=== PATIENT | female | born 1945 | race Hispanic/Latino ===

== ENCOUNTER 2016-11-19 21:42 | Emergency (ER) | payer OTHER, MEDICARE ==
[2016-11-19 21:47] VITALS: BP 166/86
[2016-11-19] MEDS ORDERED: TESSALON PERLE100 M1 PO (22:12)
[2016-11-19] MEDS ORDERED: AMOXICILLIN250 M3 PO (22:12)
[2016-11-19] MEDS ORDERED: PROAIR HFA8.5 GM INH (22:12)
--- NOTE | 2016-11-19 22:16 | ED THROAT/DENTAL COMPLAINT ---
History of Present Illness General Chief Complaint: Sore Throat, Dental Pain Stated Complaint: SORE THROAT, FEVER, CONGESTION PER PT Source: patient, family Exam Limitations: no limitations Vital Signs & Intake/Output Vital Signs & Intake/Output Vital Signs Date Time Temp Pulse Resp B/P Pulse O2 O2 Flow FiO2 Ox Delivery Rate 11/197 98.0 71 18 166/86 98 Room Air Allergies Coded Allergies: No Known Allergies (11/19/16) Triage Note: TRIAGE; PT TO ED C/O SORE THROAT, FEVER OF 101, CONGESTION, AND COUGH SINCE WEDNESDAY. PTS TEMP 98.0 IN TRIAGE, TOOK TYLENOL AT 8PM TONIGHT. PT STATES PAIN WITH SWALLOWING, ALSO HAVING PAIN IN CHEST WHENEVER SHE COUGHS, AND GOES AWAY WHEN NOT COUGHING, ALSO FEELS LIKE SHE HAS ASTHMA, STATES SHE HAD IT A KID, BUT HER BREATHING FEELS LIKE IT NOW WELL. RA SAT 98%. Triage Nurses Notes Reviewed? yes HPI: Patient presents with a three-day history of fevers chills sore throat and a nonproductive cough. There is no shortness of breath or dyspnea on exertion. There is no chest pain. There is no abdominal pain. There is no nausea or vomiting. There is no constipation or diarrhea. The sore throat is scratchy and sensation is constant. It is worse when she swallows. There is no difficulty swallowing. She rates the throat pain at 4 out of 10. There is no radiation. Past History Travel History Traveled to [place] past 21 day No Medical History Any Pertinent Medical History? see below for history Cardiovascular: hypertension Respiratory: asthma Surgical History Surgical History: non-contributory Psychosocial History What is your primary language Trinidadian Tobacco Use: Never used ETOH Use: denies use Illicit Drug Use: denies illicit drug use Family History Hx Contributory? No Review of Systems Review of Systems Constitutional: Reports: see HPI, chills, fever. EENTM: Reports: see HPI, throat pain. Respiratory: Reports: see HPI, cough. Cardiovascular: Reports: no symptoms. GI: Reports: no symptoms. Musculoskeletal: Reports: no symptoms. Neurological/Psychological: Reports: no symptoms. Immunologic/Allergic: Reports: no symptoms. Physical Exam Physical Exam General Appearance: well developed/nourished, alert, awake, anxious, mild distress Head: atraumatic, normal appearance Eyes: Bilateral: PERRL, EOMI. Nose: normal inspection Mouth/Throat: tonsillar exudate, tonsillar swelling Neck: lymphadenopathy (R), lymphadenopathy (L) Cardiovascular/Respiratory: normal peripheral pulses, regular rate/rhythm, no respiratory distress, SLIGHT WHEEZE ONLY WITH COUGH. OGGD AIR ENTRY AND CTA WHEN NOT COUGHING Neurologic/Psych: no motor/sensory deficits, awake, alert, oriented x 3, normal gait, normal mood/affect Core Measures ACS in differential dx? No Severe Sepsis Present: No Septic Shock Present: No Progress Differential Diagnosis: epiglottitis, Ludwigs angina, strep pharyngitis, BRONCHITIS Plan of Care: Orders Procedure Date/time Status THROAT CULTURE W/QUICK STREP 11/19 2149 Complete Current Medications Sig/Eugenia Start time Last Medication Dose Stop Time Status Admin Albuterol Sulfate 3 ML ONCE ONE 11/19 2214 UNVr (Proventil) 11/19 2215 Amoxicillin 250 MG ONCE ONE 11/19 2214 UNVr (Amoxil) 11/19 2215 Departure Departure Disposition: HOME OR SELF CARE Condition: Stable Clinical Impression Primary Impression: Strep throat Secondary Impressions: Bronchitis Referrals: ESTEVAN CABRALES MD,LEYLA SHANKS (PCP/Family) Additional Instructions: DRINK PLENTY OF FLUIDS RETURN IF SYMPTOMS WORSEN OR FOR ANY CONCERNS Departure Forms: Customer Survey General Discharge Information Prescriptions: Current Visit Scripts Amoxicillin 1 CAP PO TID #30 CAP Albuterol Sulfate (Proair Hfa) 2 PUF INH Q4-6 PRN PRN BRONCHITIS #1 INHAL Benzonatate (Tessalon Perle) 1 CAP PO TID PRN COUGH #30 CAP
== END 2016-11-19 22:32 ==
LOC: ERH 21:42
DX: J40 Bronchitis, not specified as acute or chronic (principal); J02.0 Streptococcal pharyngitis; R07.9 Chest pain, unspecified
CPT/HCPCS: 1263

== ENCOUNTER 2017-11-17 20:38 | Emergency (ER) | payer OTHER, MEDICARE ==
[~2017-11-17] VITALS: Ht 152.4 cm; Wt 52.2 kg
[~2017-11-17 20:38] MED LIST: AMOXICILLIN250 M3 PO; PROAIR HFA8.5 GM INH; TESSALON PERLE100 M1 PO
--- NOTE | 2017-11-17 22:29 | ED INFLUENZA/URI COMPLAINT ---
History of Present Illness General Chief Complaint: General Adult Stated Complaint: COUGH Source: patient, family, old records Exam Limitations: no limitations Vital Signs & Intake/Output Vital Signs & Intake/Output Vital Signs Date Time Temp Pulse Resp B/P B/P Pulse O2 O2 Flow FiO2 Mean Ox Delivery Rate 11/17 2250 99 11/17 2048 96.5 85 18 167/83 97 Room Air Allergies Coded Allergies: No Known Allergies (11/19/16) Reconcile Medications Albuterol Sulfate (Proair Hfa) 90 MCG HFA.AER.AD 2 PUF INH Q4-6 PRN PRN BRONCHITIS Albuterol Sulfate (Proair Hfa) 90 MCG HFA.AER.AD 2 PUF INH Q4-6 PRN PRN bronchitis Amoxicillin 250 MG CAPSULE 1 CAP PO TID STREP THROAT Benzonatate (Tessalon Perle) 100 MG CAPSULE 1 CAP PO TID PRN COUGH Codeine Phosphate/Guaifenesi (Cheratussin AC Syrup) 10 MG-100 MG/5 ML LIQUID 5 -10 ML PO Q4-6P PRN cough Oseltamivir Phosphate (Tamiflu) 75 MG CAPSULE 1 CAP PO BID influenza Prednisone 20 MG TABLET 1 TAB PO BID bronchospasm Triage Note: PT TO ER C/C DRY COUGH X 2 DAYS. AFEBRILE. HX ASTHMA Triage Nurses Notes Reviewed? yes Onset: 2 days Duration: day(s):, constant, continues in ED Timing: recent history Severity: moderate, severe Prior Episodes/Possible Cause: illness exposure No Modifying Factors: none Associated Symptoms: cough, fever/chills LMP (ages 10-50): post menopausal : No Patient currently breastfeeds: No HPI: 2 days prior to admission patient complains of bodyaches nonproductive cough nasal congestion fever chills anorexia. She denies chest pain shortness of breath headache dysuria rash bleeding. Past History Travel History Traveled to [place] past 21 day No Medical History Any Pertinent Medical History? see below for history Cardiovascular: hypertension Respiratory: asthma Surgical History Surgical History: non-contributory Psychosocial History What is your primary language Greenlandic Tobacco Use: Quit >30 days ago Family History Hx Contributory? No Review of Systems Review of Systems Constitutional: Reports: see HPI, chills, fever, malaise. EENTM: Reports: see HPI, nasal congestion. Respiratory: Reports: see HPI, cough, short of breath. Cardiovascular: Reports: no symptoms. GI: Reports: no symptoms. Genitourinary: Reports: no symptoms. Musculoskeletal: Reports: see HPI, muscle pain. Skin: Reports: no symptoms. Neurological/Psychological: Reports: no symptoms. Hematologic/Endocrine: Reports: no symptoms. Immunologic/Allergic: Reports: no symptoms. All Other Systems: Reviewed and Negative Physical Exam Physical Exam General Appearance: well developed/nourished, alert, awake, anxious, mild distress, thin Head: atraumatic, normal appearance Eyes: Bilateral: normal appearance, PERRL, EOMI. Ears, Nose, Throat: normal ENT inspection, moist mucous membrane, hearing grossly normal, Tympanic normal Neck: normal inspection, supple, full range of motion, trachea midline, lymphadenopathy (R), lymphadenopathy (L) Respiratory: normal breath sounds, chest non-tender, no respiratory distress, quiet respiration, lungs clear Cardiovascular: regular rate/rhythm, normal peripheral pulses, norml femoral pulses equa Peripheral Pulses: 4+ carotid (R), 4+ carotid (L) Gastrointestinal: normal bowel sounds, soft, non-tender, no organomegaly Back: normal inspection, normal range of motion, no vertebral tenderness Extremities: normal inspection, normal capillary refill, normal range of motion, no edema, no ligament instability Neurologic/Psych: no motor/sensory deficits, awake, alert, oriented x 3, normal gait, normal mood/affect, director banking II-XII nml as tested Reflexes: 2+: bicep (R), bicep (L). Skin: intact, normal color, warm/dry Lymphatic: adenopathy Core Measures Sepsis Present: No Sepsis Focused Exam Completed? No Progress Differential Diagnosis: influenza, pneumonia, pharyngitis, sinusitis Plan of Care: Orders Procedure Date/time Status RAPID VIRAL INFLUENZA A 11/17 2218 Complete Current Medications Sig/Eugenia Start time Last Medication Dose Stop Time Status Admin Albuterol Sulfate 3 ML ONCE ONE 11/17 2229 UNVr 11/17 (Proventil) 11/17 Guaifenesin/Codeine 10 ML ONCE ONE 11/17 2229 UNVr 11/17 Phosphate 11/17 2230 224 (Robitussin AC) Ibuprofen 600 MG ONCE ONE 11/17 2229 UNVr 11/17 (Motrin) 11/17 2230 224 Ipratropium [place] 2.5 ML ONCE ONE 11/17 2229 UNVr 11/17 (Atrovent) 11/17 2231 2249 Prednisone 60 MG ONCE ONE 11/17 2229 UNVr 11/17 11/17 2231 2302 Microbiology 11/17 2221 NASOPHARYN: Influenza Virus A & B Rapid Smear - COMP INFLUENZA TYPE A Diagnostic Imaging: Viewed by Me: Radiology Read. Discussed w/RAD: Radiology Read. CXR Impression: no acute abnormality Initial ED EKG: none Departure Departure Time of Disposition: 2320 Disposition: HOME OR SELF CARE Condition: Stable Clinical Impression Primary Impression: Influenza Referrals: Mir Webster MD,Quirino Medina (PCP/Family) Departure Forms: Customer Survey General Discharge Information Prescriptions: Current Visit Scripts Oseltamivir Phosphate (Tamiflu) 1 CAP PO BID #10 CAP Albuterol Sulfate (Proair Hfa) 2 PUF INH Q4-6 PRN PRN bronchitis #1 INHAL Prednisone 1 TAB PO BID #10 TAB Codeine Phosphate/Guaifenesi (Cheratussin AC Syrup) 5-10 ML PO Q4-6P PRN cough #240 ML
--- NOTE | 2017-11-17 22:54 | RADIOLOGY REPORT ---
EXAMINATION: XR CHEST CLINICAL INFORMATION: Fever and cough. Wheezing. COMPARISON: None TECHNIQUE: 2 views of the chest were obtained. FINDINGS: No significant abnormality is noted involving the heart, lungs, mediastinum, bony thorax or soft tissues. IMPRESSION: Unremarkable examination.
[2017-11-17] MEDS ORDERED: TAMIFLU75 M1 PO (23:25)
[2017-11-17] MEDS ORDERED: CHERATUSSIN AC118 M1 PO (23:25)
[2017-11-17] MEDS ORDERED: PROAIR HFA8.5 GM INH (23:25)
[2017-11-17] MEDS ORDERED: PREDNISONE20 M1 PO (23:25)
[2017-11-17 23:32] VITALS: BP 134/70
== END 2017-11-17 23:32 ==
LOC: ERH 20:38
DX: J11.1 Influenza due to unidentified influenza virus with other respiratory manifestations (principal); Z87.891 Personal history of nicotine dependence
CPT/HCPCS: 1263; 71046; 87804; 87804-59